=== PATIENT | female | born 1975 | race Two or more races ===

== ENCOUNTER 2018-04-29 15:01 | Emergency (ER) | payer MEDICAID, OTHER ==
[~2018-04-29] VITALS: Ht 165.1 cm; Wt 76.6 kg
[2018-04-29 15:35] LABS: MICROSCOPIC NOT IND
[2018-04-29 15:38] LABS: CULTURE INDICATED? NO
[2018-04-29 19:04] VITALS: BP 118/60
== END 2018-04-29 20:07 | disposition home or self-care (01) ==
LOC: ED 16:51
DX: R10.2 Pelvic and perineal pain (principal); F17.200 Nicotine dependence, unspecified, uncomplicated
CPT/HCPCS: 81003; 99283

== ENCOUNTER 2018-05-25 08:42 | Emergency (ER) | payer OTHER ==
[~2018-05-25] VITALS: Ht 165.1 cm; Wt 78.6 kg
[2018-05-25] MEDS ORDERED: ONDANSETRON ODT 4 MG PO ONE (09:30)
[2018-05-25 09:42] LABS: BASOPHILS # (AUTO) 0.01 x10^3/uL (0-0.1); BASOPHILS % (AUTO) 0 % (0-1); EOSINOPHILS # (AUTO) 0.03 x10^3/uL (0-0.4); EOSINOPHILS % (AUTO) 0 % (1-7); LYMPHOCYTES # (AUTO) 0.44 x10^3/uL (1-3.4); LYMPHOCYTES % (AUTO) 5 % (22-44); MD NO; MEAN CORPUSCULAR HEMOGLOBIN 28.6 pg (27.0-34.8); MEAN CORPUSCULAR HGB CONC 33.4 g/dL (32.4-35.8); MEAN CORPUSCULAR VOLUME 85.7 fL (80-100); MEAN PLATELET VOLUME 8.5 fL (7.4-10.4); MONOCYTES % (AUTO) 6 % (2-9); NEUTROPHILS # (AUTO) 7.97 x10^3/uL (1.8-6.8); NEUTROPHILS % (AUTO) 89 % (42-75); PLATELET COUNT 307 x10^3/uL (130-400); RED BLOOD COUNT 4.65 x10^6/uL (3.82-5.3); RED CELL DISTRIBUTION WIDTH 13.9 % (9.6-15.2)
[2018-05-25 09:42] LABS: HCG UR SG 1.024 (1.003-1.030); MICROSCOPIC AUTO
[2018-05-25 09:45] LABS: CULTURE INDICATED? YES
[2018-05-25 09:52] LABS: ALANINE AMINOTRANSFERASE 41 U/L (12-78); ALBUMIN 3.9 g/dL (3.4-5.0); CALCIUM 7.9 mg/dL (8.5-10.1); CREATININE 0.74 mg/dL (0.55-1.02)
[2018-05-25] MEDS ORDERED: ONDANSETRON ODT 4 MG ONE (09:53)
[2018-05-25 10:05] LABS: ALKALINE PHOSPHATASE 53 U/L (45-117); ANION GAP 9 mmol/L (5-15); BILIRUBIN,TOTAL 0.5 mg/dL (0.2-1.0); CHLORIDE 105 mmol/L (98-107); TOTAL PROTEIN 7.3 g/dL (6.4-8.2)
[2018-05-25 12:49] VITALS: BP 96/58
== END 2018-05-25 12:53 | disposition home or self-care (01) ==
LOC: ED 10:21
DX: K59.00 Constipation, unspecified (principal); R11.2 Nausea with vomiting, unspecified; F20.9 Schizophrenia, unspecified; F41.1 Generalized anxiety disorder; F31.9 Bipolar disorder, unspecified; Z87.891 Personal history of nicotine dependence
CPT/HCPCS: 36415; 74022; 80053; 81001; 81025; 83690; 85025; 87086; 99284; Q0162